=== PATIENT | male | born 1940 ===

== ENCOUNTER 2017-08-06 10:29 | Day surgery (SDC) | payer MEDICARE ==
[~2017-08-06] VITALS: Ht 175.3 cm; Wt 75.8 kg
[~2017-08-06 10:29] MED LIST: CELE200; CIPR500 PO; DIGO.25 PO; GLIM2 PO; METF500 PO; METO25ER PO; METR500 PO; OXYACE5T PO; SACC250C PO; WARF3 PO
== END 2017-08-06 11:37 | disposition home or self-care (01) ==
LOC: ORSCSDS 10:29
DX: K92.1 Melena (principal); Z53.9 Procedure and treatment not carried out, unspecified reason
CPT/HCPCS: 93005; 93010

== ENCOUNTER 2017-10-08 13:01 | Day surgery (SDC) | payer MEDICARE ==
[~2017-10-08] VITALS: Ht 170.2 cm; Wt 76.6 kg
== END 2017-10-08 15:05 | disposition home or self-care (01) ==
LOC: ORSCSDS 13:01
PROVIDERS: Surgery
PROC: 0DJD8ZZ Inspection of Lower Intestinal Tract, Via Natural or Artificial Opening Endoscopic (ICD-10-PCS; principal; 2017-10-08 14:30)
DX: R19.4 Change in bowel habit (principal); R10.32 Left lower quadrant pain; E11.9 Type 2 diabetes mellitus without complications; Z79.01 Long term (current) use of anticoagulants; Z79.84 Long term (current) use of oral hypoglycemic drugs; Z79.899 Other long term (current) drug therapy
CPT/HCPCS: 82947; J0330; J1980; J2405; J7120